=== PATIENT | female | born 1980 | race Caucasian/White ===

== ENCOUNTER 2020-03-29 18:22 | Emergency (ER) | payer MEDICAID ==
[~2020-03-29] VITALS: Ht 157.5 cm; Wt 68.2 kg
[2020-03-29 18:35] VITALS: Ht 157.5 cm; Wt 68.2 kg
[2020-03-29 19:09] LABS: BASOPHILS 0.4 % (0-2); EOSINOPHILS 5.4 % (0-7); HEMATOCRIT 41.1 % (36.0-48.0); HEMOGLOBIN 13.4 g/dL (12-16); IMMATURE GRANULOCYTES 0.2 % (0-5); MCH 30.6 pg (26.0-34.0); MCHC 32.6 g/dL (31.0-37.0); MCV 93.8 fL (80.0-100.0); MEAN PLATELET VOLUME 9.8 fL (7.4-10.4); MONOCYTES 7.2 % (2-11); NEUTROPHILS 60.8 % (40-80); PLATELET COUNT 239 10x3/uL (130-400); RBC 4.38 10x6/uL (4.00-5.40); RDW 13.5 % (11.5-14.5); WBC 9.3 10x3/uL (4.8-10.8)
[2020-03-29 19:22] LABS: CALC OSMOLALITY 274 mosm/kg (275-300); CARBON DIOXIDE 25.9 mmol/L (21.0-32.0); CHLORIDE - SERUM 104 mmol/L (98-107); CREATININE - SERUM 0.8 mg/dL (0.6-1.3); GLUCOSE 99 mg/dL (74-106); POTASSIUM - SERUM 3.7 mmol/L (3.5-5.1); SODIUM 137 mmol/L (136-145); UREA NITROGEN 15 mg/dL (7-18); eGFR NON AFRICAN AMERICAN 84 mL/min (90-120)
[2020-03-29 19:28] LABS: ALBUMIN 4.1 g/dL (3.4-5.0); ALKALINE PHOSPHATASE 111 U/L (30-120); ALT (SGPT) 17 U/L (10-68); PROTEIN - SERUM 7.4 g/dL (6.4-8.2)
[2020-03-29 19:31] LABS: BILIRUBIN NEGATIVE (NEGATIVE); GLUCOSE NEGATIVE (NEGATIVE); KETONE NEGATIVE (NEGATIVE); NITRITE NEGATIVE (NEGATIVE); UROBILINOGEN NORMAL (NORMAL)
[2020-03-29 19:33] LABS: BACTERIA FEW /hpf (NEGATIVE); HCG URINE NEGATIVE (NEGATIVE); RED CELLS - URINE >50 /hpf (0-5); WHITE CELLS - URINE 0-5 /hpf (NEGATIVE)
[2020-03-29] MEDS ORDERED: HYDROCODON-ACE1 EAC7 PO (19:44)
[2020-03-29] MEDS ORDERED: PHENERGAN25 M1 PO (19:58)
[2020-03-29 20:30] VITALS: BP 131/82
== END 2020-03-29 20:10 | disposition home or self-care (01) ==
LOC: D.ER 18:22
PROVIDERS: Family Medicine
DX: N20.1 Calculus of ureter (principal); R10.9 Unspecified abdominal pain

== ENCOUNTER 2020-11-08 16:10 | Emergency (ER) | payer MEDICAID ==
[~2020-11-08] VITALS: Ht 157.5 cm; Wt 70.5 kg
[~2020-11-08 16:10] MED LIST: HYDROCODON-ACE1 EAC7 PO; PHENERGAN25 M1 PO
[2020-11-08 16:22] VITALS: Ht 157.5 cm; Wt 70.5 kg
[2020-11-08 17:02] LABS: BASOPHILS 0.3 % (0-2); EOSINOPHILS 2.5 % (0-7); HEMATOCRIT 43.6 % (36.0-48.0); HEMOGLOBIN 14.4 g/dL (12-16); IMMATURE GRANULOCYTES 0.3 % (0-5); LYMPHOCYTE ABS# 1.53 10x3/uL (1.18-3.74); LYMPHOCYTES 13.1 % (15-50); MCH 30.1 pg (26.0-34.0); MCV 91.2 fL (80.0-100.0); MEAN PLATELET VOLUME 9.4 fL (7.4-10.4); MONOCYTES 8.9 % (2-11); NEUTROPHIL ABS# 8.72 10x3/uL (1.56-6.13); NEUTROPHILS 74.9 % (40-80); PLATELET COUNT 265 10x3/uL (130-400); RBC 4.78 10x6/uL (4.00-5.40); RDW 13.5 % (11.5-14.5); WBC 11.7 10x3/uL (4.8-10.8)
[2020-11-08 17:16] LABS: ANION GAP 13.3 mmol/L (8-16); CALCIUM 8.8 mg/dL (8.5-10.1); CARBON DIOXIDE 27.3 mmol/L (21.0-32.0); CREATININE - SERUM 1.1 mg/dL (0.6-1.3); POTASSIUM - SERUM 3.6 mmol/L (3.5-5.1)
[2020-11-08 17:22] LABS: ALBUMIN 3.8 g/dL (3.4-5.0); BILIRUBIN - TOTAL 0.39 mg/dL (0.2-1.3); PROTEIN - SERUM 7.7 g/dL (6.4-8.2)
[2020-11-08 17:24] LABS: BILIRUBIN 2+ (NEGATIVE); KETONE NEGATIVE (NEGATIVE); NITRITE NEGATIVE (NEGATIVE); UROBILINOGEN NORMAL mg/dL (< 2)
[2020-11-08 17:26] LABS: WHITE CELLS - URINE 25-50 HPF (0-4)
[2020-11-08 17:27] LABS: BACTERIA MANY HPF (NONE SEEN); HCG URINE NEGATIVE (NEGATIVE)
[2020-11-08] MEDS ORDERED: TORADOL10 MG PO (18:39)
[2020-11-08] MEDS ORDERED: LEVAQUIN750 MG PO (18:39)
[2020-11-08 18:43] VITALS: BP 108/57
[2020-11-10 07:15] LABS: CHLAMYDIA TRACHOMATIS, NAA Negative (Negative)
== END 2020-11-08 18:52 | disposition home or self-care (01) ==
LOC: D.ER 16:10
PROVIDERS: Family Medicine
DX: N39.0 Urinary tract infection, site not specified (principal); R30.9 Painful micturition, unspecified